=== PATIENT | female | born 1985 | race Caucasian/White ===

== ENCOUNTER 2016-10-29 17:11 | Emergency (ER) | payer SELFPAY ==
[2016-10-29 17:36] VITALS: BP 126/93
--- NOTE | 2016-10-29 17:38 | EDM.PDOC ---
ED HPI HEADACHE COMPLAINT - General Chief Complaint: Headache Stated Complaint: SEIZURES, MIGRAINE, LEFT EYE VISON LOSS Time Seen by Provider: 10/29/16 17:35 - History of Present Illness INITIAL COMMENTS - FREE TEXT/NARRATIVE: 31-year-old female presents emergency room with atypical migraine. Patient has a history of atypical migraines since 7 years of age. Her last was 3 months ago. This one is acting very much like her migraines in the past. It is associated with left-sided vision loss decreased hearing of left ear and at times she has absence seizures with these. Patient has severe nausea and vomiting. The patient is treated with Keppra. She has Phenergan at home however she's not been able to keep it down she last attempted this yesterday. Her headache has been going on for 9 or 10 days. They often go on this duration without aggressive treatment. Patient is visiting here from [place] and has not been seen in our department in the past. - Related Data Allergies/ADRs: Allergies Allergy/AdvReac Type Severity Reaction Status Date / Time ketorolac [From Toradol] Allergy Hives Verified 10/29/16 17:36 metoclopramide [From Reglan] Allergy Rash Verified 10/29/16 17:36 prochlorperazine Allergy Rash Verified 10/29/16 17:36 [From Compazine] Home Meds: Home Meds . [Unable to Verify Home Med List] 10/29/16 [History] ED ROS GENERAL - Review of Systems Review Of Systems: See Below Constitutional: Denies: fever, chills HEENT: Reports: Hearing loss, Vision change. Denies: Ear pain, Eye pain Respiratory: Reports: No Symptoms Cardiovascular: Reports: No symptoms GI/Abdominal: Reports: Diarrhea, Nausea, Vomiting. Denies: Abdominal pain : Reports: no symptoms Musculoskeletal: Reports: no symptoms Neurological: Reports: Headache, Seizure - Physical Exam Exam: See Below Exam Limited By: No limitations General Appearance: alert, moderate distress (She is in some distress from her headache and the nausea and vomiting this is a typical headache for her) Eye Exam: bilateral eye: EOMI, normal inspection, PERRL Ears: normal external exam, normal canal, normal TMs Nose: normal inspection Throat/Mouth: Normal inspection, Normal lips, Normal teeth, Normal gums, Normal oropharynx, Normal voice, No airway compromise Head Exam: atraumatic, normocephalic Neck: normal inspection, supple, full range of motion, other (She has some muscle tightness and left-sided with some mild to moderate discomfort). No: lymphadenopathy (L), lymphadenopathy (R), tender midline Respiratory/Chest: no respiratory distress, lungs clear, normal breath sounds Cardiovascular: regular rate, rhythm, no edema, no murmur GI/Abdominal: normal bowel sounds, soft, non tender Neuro Exam (Abbreviated): other (Cranial nerves intact other than the diminished hearing on the left gross strength is equal and appropriate in both upper extremities, deep tendon reflexes at the brachial radialis are equal and appropriate) Back Exam: normal inspection. No: CVA tenderness (L), CVA tenderness (R) Extremities: normal inspection, no pedal edema Course - Vital Signs Last Recorded V/S: Last Vital Signs Temp 36.3 C 10/29/16 17:31 Pulse 111 H 10/29/16 17:31 Resp 18 10/29/16 17:31 BP 126/93 H 10/29/16 17:31 Pulse Ox 99 10/29/16 17:31 - Orders/Labs/Meds Orders: Active Orders 24 hr Category Date Time Status EKG Documentation Completion [RC] STAT Care 10/29/16 19:21 Active Meds: Medications Discontinued Medications Generic Name Dose Route Start Last Admin Trade Name Que PRN Reason Stop Dose Admin Diphenhydramine HCl 50 mg 10/29/16 17:45 10/29/16 19:03 Benadryl IVPUSH 10/29/16 17:46 Not Given ONETIME ONE Diphenhydramine HCl 50 mg 10/29/16 18:36 10/29/16 18:42 Benadryl IM 10/29/16 18:37 50 mg ONETIME ONE Administration Haloperidol Lactate 5 mg 10/29/16 19:21 10/29/16 19:30 Haldol IM 10/29/16 19:22 5 mg ONETIME ONE Administration Lactated Ringer's 1,000 mls @ 999 mls/hr 10/29/16 17:45 10/29/16 18:25 Ringers, Lactated IV 10/29/16 18:45 999 mls/hr .BOLUS ONE Administration Promethazine HCl 25 mg/ Sodium 51 mls @ 100 mls/hr 10/29/16 17:45 Chloride IV 10/29/16 18:15 ONETIME ONE Promethazine HCl 25 mg 10/29/16 18:35 10/29/16 18:44 Phenergan IM 10/29/16 18:36 25 mg ONETIME ONE Administration - Re-Assessments/Exams Free Text/Narrative Re-Assessment/Exam: 10/29/16 18:02 She'll be treated with Phenergan 25 mg Benadryl 50 mg in a liter of LR initially 10/29/16 19:44 We had difficulty obtaining an IV line she developed significant chest discomfort when he started to this her pulse went up and she was acting very anxious. She did receive IM Phenergan and Benadryl. And this was followed by IM Haldol 5 mg. I went to discuss the situation with the patient as she refused an EKG. She is quite upset that she wanted strong pain medications. I informed her with no uncertain terms we'll give strong pain medications for migraines here. I encouraged her to let us continue the workup however she is insistent on going home she will sign out against medical advise. She was encouraged to stay and let us do our job, however, refused. Departure - Departure Time of Disposition: 19:46 Disposition: Against Medical Advice 07 Condition: undetermined Clinical Impression: Atypical migraine, Chest pain Forms: ED Department Discharge Additional Instructions: She left the department for acute give her precautions to watch out for with the medication she received. - My Orders Last 24 Hours: My Active Orders 10/29/16 19:21 EKG Documentation Completion [RC] STAT - Assessment/Plan Last 24 Hours: My Active Orders 10/29/16 19:21 EKG Documentation Completion [RC] STAT
[2016-10-29] MEDS ORDERED: Promethazine 25 MG in Sodium Chloride 0.9% 50 ML IV ONE (17:45)
[2016-10-29] MEDS ORDERED: Lactated Ringers 1,000 ML IV ONE (17:45)
[2016-10-29] MEDS ORDERED: diphenhydrAMINE 50 MG/ML SDV IVPUSH ONE (17:45)
[2016-10-29] MEDS ORDERED: Promethazine 25 MG/ML SDV IM ONE (18:35)
[2016-10-29] MEDS ORDERED: diphenhydrAMINE 50 MG/ML SDV IM ONE (18:36)
[2016-10-29] MEDS ORDERED: Haloperidol Lactate 5 MG/ML SDV IM ONE (19:21)
== END 2016-10-29 19:47 | disposition left against medical advice (07) ==
LOC: EDBD 17:11 → JD.ED 17:11
DX: G43.809 Other migraine, not intractable, without status migrainosus (principal); R07.9 Chest pain, unspecified; Z88.5 Allergy status to narcotic agent
CPT/HCPCS: 96372; 99284; J1200; J1630; J2550; J7120

== ENCOUNTER 2016-12-15 18:21 | Emergency (ER) | payer SELFPAY ==
--- NOTE | 2016-12-15 18:47 | EDM.PDOC ---
ED HPI GENERAL MEDICAL PROBLEM - General Chief Complaint: Headache Stated Complaint: MIGRAINE, VISION CHANGES Time Seen by Provider: 12/15/16 18:40 Source of Information: Reports: Patient History Limitations: Reports: No Limitations - History of Present Illness INITIAL COMMENTS - FREE TEXT/NARRATIVE: Patient is a 31-year-old female who presents to ED complaining of migraine headache located to the right side her head with mild blurred vision to the right eye per the past 17 days. States she has a history of seizures and is on Keppra. States over the past 2 days she's had a few generalized tonic-clonic seizures. She continues to take Keppra as prescribed. There has been no tongue trauma or incontinence urine or stool. She has history of similar headaches but notes the duration is quite long. She is seeing a neurologist in [place] with diagnosis of migraine. She has been taking Dilaudid 2 mg for her discomfort with little improvement. Denies any fevers/chills, chest pain, shortness breath , abdominal pain, dysuria, recent head trauma, n/t or any additional neurological deficits. She also denies stiff neck. Denies alcohol use, recreational drug use, or smoking. Past medical history: Seizures, anxiety, blood clots Current medications: Propanolol, Seroquel, Keppra, Dilaudid Surgical history: hysterectomy Onset: Other (17 days ago) Duration: Constant, Waxing/Waning Location: Reports: Head Quality: Reports: Ache, Same as Previous Episode (similar symptoms but longer duration), Throbbing Severity: Severe Improves with: Reports: None Treatments PROCESSOR HELPER: Reports: Other (see below) (see medication list.) Right Headache Pain Score (Numeric/FACES): 10 - Related Data Allergies Allergy/AdvReac Type Severity Reaction Status Date / Time ketorolac [From Toradol] Allergy Hives Verified 12/15/16 18:35 metoclopramide [From Reglan] Allergy Rash Verified 12/15/16 18:35 prochlorperazine Allergy Rash Verified 12/15/16 18:35 [From Compazine] Home Meds: Home Meds Propranolol [Inderal] 250 mg PO DAILY 12/15/16 [History] QUEtiapine [SEROquel] 50 mg PO BEDTIME 12/15/16 [History] Past Medical History Cardiovascular History: Reports: Blood Clots/VTE/DVT Neurological History: Reports: Seizure Psychiatric History: Reports: Anxiety - Past Surgical History GI Surgical History: Reports: Other (See Below) Social & Family History - Tobacco Use Smoking Status *Q: Never Smoker - Caffeine Use Caffeine Use: Reports: None - Recreational Drug Use Recreational Drug Use: No ED ROS GENERAL - Review of Systems Review Of Systems: See Below Constitutional: Reports: Decreased Appetite. Denies: Fever, Chills, Malaise, Weakness, Fatigue HEENT: Reports: Vision Change (right I blurriness) Respiratory: Denies: Shortness of Breath, Cough, Sputum Cardiovascular: Denies: Chest Pain, Dyspnea on Exertion, Palpitations GI/Abdominal: Reports: Nausea, Vomiting. Denies: Abdominal Pain : Denies: Dysuria Musculoskeletal: Reports: No Symptoms Neurological: Reports: Headache, Seizure (history of seizures. States with recent onset of headache has had multiple grand mal seizures.). Denies: Confusion, Dizziness, Numbness, Pre-Existing Deficit, Syncope, Tingling, Difficulty Walking, Weakness - Physical Exam Exam: See Below Exam Limited By: No Limitations General Appearance: Alert, WD/WN, Moderate Distress, Other (No facial droop or sensory deficits noted to face. ) Eye Exam: Bilateral Eye: EOMI, Nystagmus (no nystagmus), PERRL Ears: Normal External Exam Nose: Normal Inspection Throat/Mouth: Normal Inspection, Normal Oropharynx, Normal Voice, No Airway Compromise Head Exam: Atraumatic, Normocephalic Neck: Normal Inspection, Supple, Non-Tender, Full Range of Motion. No: Lymphadenopathy (L), Lymphadenopathy (R), Tender Lateral, Tender Midline Respiratory/Chest: No Respiratory Distress, Lungs Clear, Normal Breath Sounds, No Accessory Muscle Use, Chest Non-Tender Cardiovascular: Normal Peripheral Pulses, Regular Rate, Rhythm, No Edema, No Murmur GI/Abdominal: Normal Bowel Sounds, Soft, Non-Tender, No Organomegaly, No Distention Neuro Exam (Abbreviated): Alert, Oriented, CN II-XII Intact, Normal Cognition, No Motor/Sensory Deficits, Other (cerebellar function intact. Upper and lower extremity strength 5 over 5 withno discrepancy) Back Exam: Normal Inspection, Full Range of Motion. No: CVA Tenderness (L), CVA Tenderness (R), Paraspinal Tenderness, Vertebral Tenderness Extremities: Normal Inspection, Non-Tender, No Pedal Edema, Normal Capillary Refill Psychiatric: Normal Affect, Normal Mood Skin Exam: Warm, Dry, Intact, Normal Color Course - Vital Signs Last Recorded V/S: Last Vital Signs Temp 97.8 F 12/15/16 18:28 Pulse 78 12/15/16 21:21 Resp 18 12/15/16 21:21 BP 112/80 12/15/16 21:21 Pulse Ox 97 12/15/16 21:21 - Orders/Labs/Meds Orders: Active Orders 24 hr Category Date Time Status Head wo Cont [CT] Stat Exams 12/15/16 18:58 Taken KEPPRA [REF] Stat Lab 12/15/16 19:49 Received Labs: Laboratory Tests 12/15/16 12/15/16 Range/Units 19:49 19:49 WBC 7.82 (3.98-10.04) K/mm3 RBC 4.35 (3.98-5.22) M/mm3 Hgb 13.0 (11.2-15.7) gm/L Hct 39.4 (34.1-44.9) % MCV 90.6 (79.4-94.8) fl MCH 29.9 (25.6-32.2) pg MCHC 33.0 (32.2-35.5) g/dl RDW Std Deviation 47.6 H (36.4-46.3) fL Plt Count 391 H (182-369) K/mm3 MPV 9.6 (9.4-12.3) fl Neut % (Auto) 44.0 (34.0-71.1) % Lymph % (Auto) 45.1 (19.3-51.7) % [place] % (Auto) 9.6 (4.7-12.5) % Eos % (Auto) 0.8 (0.7-5.8) Baso % (Auto) 0.5 (0.1-1.2) % Neut # (Auto) 3.44 (1.56-6.13) K/mm3 Lymph # (Auto) 3.53 (1.18-3.74) K/mm3 [place] # (Auto) 0.75 H (0.24-0.36) K/mm3 Eos # (Auto) 0.06 (0.04-0.36) K/mm3 Baso # (Auto) 0.04 (0.01-0.08) K/mm3 Sodium 141 (136-145) mEq/L Potassium 3.6 (3.5-5.1) mEq/L Chloride 109 H (98-107) mEq/L Carbon Dioxide 24 (21-32) mEq/L Anion Gap 11.6 (5-15) BUN 18 (7-18) mg/dL Creatinine 0.9 (0.55-1.02) mg/dL Est Cr Clr Drug Dosing 84.01 mL/min Estimated GFR (MDRD) > 60 (>60) mL/min BUN/Creatinine Ratio 20.0 H (14-18) Glucose 84 (74-106) mg/dL Calcium 8.9 (8.5-10.1) mg/dL Total Bilirubin 0.2 (0.2-1.0) mg/dL AST 11 L (15-37) U/L ALT 24 (14-59) U/L Alkaline Phosphatase 64 (46-116) U/L C-Reactive Protein 0.5 (<1.0) mg/dL Total Protein 7.6 (6.4-8.2) g/dl Albumin 3.8 (3.4-5.0) g/dl Globulin 3.8 gm/dL Albumin/Globulin Ratio 1.0 (1-2) Meds: Medications Discontinued Medications Generic Name Dose Route Start Last Admin Trade Name Freq PRN Reason Stop Dose Admin Diphenhydramine HCl 50 mg 12/15/16 18:58 12/15/16 20:16 Benadryl IVPUSH 12/15/16 18:59 50 mg ONETIME ONE Administration Haloperidol Lactate 5 mg 12/15/16 18:58 12/15/16 20:28 Haldol IVPUSH 12/15/16 18:59 5 mg ONETIME ONE Administration Sodium Chloride 1,000 mls @ 999 mls/hr 12/15/16 19:00 12/15/16 20:02 Normal Saline IV 12/15/16 20:00 999 mls/hr ONETIME ONE Administration Lorazepam 1 mg 12/15/16 18:58 12/15/16 20:19 Ativan IVPUSH 12/15/16 18:59 1 mg ONETIME ONE Administration Promethazine HCl 12.5 mg 12/15/16 18:58 12/15/16 20:22 Phenergan IM 12/15/16 18:59 12.5 mg ONETIME ONE Administration - Re-Assessments/Exams Free Text/Narrative Re-Assessment/Exam: 12/15/16 19:02 Ordered a peripheral IV with normal saline 1000 mL per hour, Phenergan 12.5 mg IM, Haldol 5 mg IVP, Ativan 1 mg IVP, Benadryl 50 mg IVP. Initial labs and studies include CBC, chem 14, CRP, head CT without, UA, and urine drug tox. In addition we'll also order a Keppra level which will be send out. CT the head without IV contrast impression: Normal head/brain CT. 12/15/16 20:54 Reassessment, patient sleeping soundly. With awakening still has headache to the right side. Does not appear to be in acute distress. She refuses giving a urine sample. She has a ride. Will discharge home. Departure - Departure Time of Disposition: 20:56 Disposition: Home, Self-Care 01 Condition: good Clinical Impression: Migraine Qualifiers: Migraine type: unspecified Status migrainosus presence: without status migrainosus Intractability: not intractable Qualified Code(s): G43.909 - Migraine, unspecified, not intractable, without status migrainosus - Discharge Information Instructions: Migraine Headache Referrals: PCP,Not In Area [Primary Care Provider] - Marquise Donaldson [Physician] - Forms: ED Department Discharge Additional Instructions: as discussed, see Dr. Donaldson PCP at [facility] this coming week. Call and make an appointment. Continue taking all home medications as prescribed. Keppra level has been obtained this is a send out and results can be discussed with you by PCP. Modifications to medication dosage may be made at that time.make an appointment to be seen by her neurologist. No driving this evening since receiving any sedative medication. Suggest no driving with a history of recent seizures. Return to ED if he develops fever or, stiff neck, or any neurological deficits. - My Orders Last 24 Hours: My Active Orders 12/15/16 18:58 Head wo Cont [CT] Stat 12/15/16 19:49 KEPPRA [REF] Stat - Assessment/Plan Last 24 Hours: My Active Orders 12/15/16 18:58 Head wo Cont [CT] Stat 12/15/16 19:49 KEPPRA [REF] Stat
[2016-12-15] MEDS ORDERED: Promethazine 25 MG/ML SDV IM ONE (18:58)
[2016-12-15] MEDS ORDERED: diphenhydrAMINE 50 MG/ML SDV IVPUSH ONE (18:58)
[2016-12-15] MEDS ORDERED: LORazepam 2 MG/ML MDV IVPUSH ONE (18:58)
[2016-12-15] MEDS ORDERED: Haloperidol Lactate 5 MG/ML SDV IVPUSH ONE (18:58)
[2016-12-15] MEDS ORDERED: Sodium Chloride 0.9% 1,000 ML IV ONE (19:00)
[2016-12-15 21:23] VITALS: BP 112/80
--- NOTE | 2016-12-18 11:14 | CT ---
Head CT Technique: Multiple axial sections through the brain were obtained. Intravenous contrast was not utilized. Comparison: No previous intracranial imaging. Findings: Ventricles along with basal cisterns and sulci over the convexities appear within normal limits for the patient's age. No abnormal parenchymal densities are seen. No evidence of intracranial hemorrhage. No midline shift or mass effect is seen. Bone window settings were reviewed which show the visualized sinuses to appear clear. No acute calvarial abnormality is seen. Impression: 1. No abnormality is identified on noncontrast head CT exam. Diagnostic code #1 Agree with preliminary report issued by [facility] ([facility] preliminary report dictated on 12/15/16, 8:44 PM Central Time)
== END 2016-12-15 21:25 | disposition home or self-care (01) ==
LOC: JD.ED 18:21
DX: G43.909 Migraine, unspecified, not intractable, without status migrainosus (principal); F41.9 Anxiety disorder, unspecified; Z86.718 Personal history of other venous thrombosis and embolism; Z88.6 Allergy status to analgesic agent; Z88.8 Allergy status to other drugs, medicaments and biological substances; Z79.899 Other long term (current) drug therapy
CPT/HCPCS: 36415; 70450; 80053; 80177; 85025; 86140; 96361; 96372; 96374; 96375; 99284; J1200; J1630; J2060; J2550; J7040

== ENCOUNTER 2017-02-03 14:19 | Emergency (ER) | payer SELFPAY ==
[2017-02-03] MEDS ORDERED: Proparacaine 0.5% Ophth Soln 15 ML Bottle ONE (15:43)
[2017-02-03] MEDS ORDERED: Benoxinate/Fluorescein 0.4-0.25% Ophth Soln 5 ML Bottle ONE (15:43)
[2017-02-03] MEDS ORDERED: diphenhydrAMINE 50 MG/ML SDV IM ONE (16:00)
[2017-02-03] MEDS ORDERED: Haloperidol Lactate 5 MG/ML SDV IM ONE (16:00)
[2017-02-03] MEDS ORDERED: Ondansetron 4 MG Tab.DIS PO ONE (16:00)
--- NOTE | 2017-02-03 16:07 | EDM.PDOC ---
ED HPI GENERAL MEDICAL PROBLEM - General Chief Complaint: Headache Stated Complaint: HEAD PAIN/RIGHT EYE PAIN Time Seen by Provider: 02/03/17 15:07 Source of Information: Reports: Patient History Limitations: Reports: No Limitations - History of Present Illness INITIAL COMMENTS - FREE TEXT/NARRATIVE: Patient has a history of ocular shingles and migraine. States the migraine has been persistent for the past 8 days. States she's been under more stress recently with moving. States this morning the discomfort has progressively gotten worse and she vomited 1. She has some intermittent blurriness of the right eye. She does note right eye has become injected. No vision loss present. Does not describe the headache as the worse headache of her life. States symptoms she's currently experiencing are somewhat similar to previous shingles breakout. States she taking Maxalt, midorine, Lortab, Phenergan 2 hours ago with no improvements. She has photophobia and hyperacusis. States she gets shingles twice a year and believes it may be brewing. Denies any fever/chills, chest pain, shortness of breath, numbness/ tingling, weakness, stiff neck, or any additional neurological deficits. Right Headache Pain Score (Numeric/FACES): 9 - Related Data Allergies Allergy/AdvReac Type Severity Reaction Status Date / Time ketorolac [From Toradol] Allergy Hives Verified 02/03/17 14:38 metoclopramide [From Reglan] Allergy Rash Verified 02/03/17 14:38 prochlorperazine Allergy Rash Verified 02/03/17 14:38 [From Compazine] Home Meds: Home Meds Propranolol [Inderal] 250 mg PO DAILY 12/15/16 [History] QUEtiapine [SEROquel] 50 mg PO BEDTIME 12/15/16 [History] Acetaminophen/HYDROcodone [Lortab 500-5 MG] 1 tab PO Q6H PRN 02/03/17 [History] Acyclovir 1 tab PO ASDIRECTED PRN 02/03/17 [History] Midodrine 1 tab PO Q6H PRN 02/03/17 [History] Rizatriptan Benzoate [Maxalt] 5 mg PO Q6H PRN 02/03/17 [History] levETIRAcetam [Keppra] 500 mg PO BID 02/03/17 [History] Past Medical History HEENT History: Reports: Impaired Vision Cardiovascular History: Reports: Blood Clots/VTE/DVT Neurological History: Reports: Seizure Psychiatric History: Reports: Anxiety Immunologic History: Reports: Other (See Below) Other Immunologic History: history of frequent shingles - Infectious Disease History Infectious Disease History: Reports: Shingles - Past Surgical History HEENT Surgical History: Reports: Adenoidectomy, Tonsillectomy Social & Family History - Family History Family Medical History: Noncontributory - Tobacco Use Smoking Status *Q: Never Smoker Second Hand Smoke Exposure: No - Caffeine Use Caffeine Use: Reports: None - Recreational Drug Use Recreational Drug Use: No ED ROS GENERAL - Review of Systems Review Of Systems: ROS reveals no pertinent complaints other than HPI. - Physical Exam Exam: See Below Exam Limited By: No Limitations General Appearance: Alert, WD/WN, Moderate Distress Eye Exam: Right Eye: Conjunctival Injection, Vision Changes (intermittent blurriness, no double vision), Bilateral Eye: EOMI, PERRL Ears: Normal External Exam, Hearing Grossly Normal Nose: Normal Inspection Throat/Mouth: Normal Voice, No Airway Compromise Head Exam: Atraumatic, Normocephalic Neck: Normal Inspection, Supple, Non-Tender, Full Range of Motion. No: Lymphadenopathy (L), Lymphadenopathy (R) Respiratory/Chest: No Respiratory Distress, Lungs Clear, Normal Breath Sounds, No Accessory Muscle Use, Chest Non-Tender Cardiovascular: Normal Peripheral Pulses, Regular Rate, Rhythm Neuro Exam (Abbreviated): Alert, Oriented, CN II-XII Intact, Normal Cognition, No Motor/Sensory Deficits, Other (Neuro exam: No facial droop, slurred speech, uvula deviation, tongue deviation, weakness discrepancy to upper or lower extremity's. Cerebellar function is intact.) Back Exam: Normal Inspection Extremities: Normal Inspection, Non-Tender, No Pedal Edema Psychiatric: Anxious Skin Exam: Warm, Dry, Intact, Normal Color. No: Zoster-Like Rash Course - Vital Signs Last Recorded V/S: Last Vital Signs Temp 98.8 F 02/03/17 14:34 Pulse 119 H 02/03/17 14:34 Resp 16 02/03/17 14:34 BP 121/83 02/03/17 14:34 Pulse Ox 99 02/03/17 14:34 - Orders/Labs/Meds Meds: Medications Discontinued Medications Generic Name Dose Route Start Last Admin Trade Name Que PRN Reason Stop Dose Admin Diphenhydramine HCl 50 mg 02/03/17 16:00 02/03/17 16:10 Benadryl IM 02/03/17 16:01 50 mg ONETIME ONE Administration Fluorescein Sodium/Benoxinate HCl Confirm 02/03/17 15:43 02/03/17 16:53 Fluress Ophth Soln Administered 02/03/17 15:44 Not Given Dose 5 ml .ROUTE .STK-MED ONE Fluorescein Sodium/Benoxinate HCl 1 ml 02/03/17 16:51 02/03/17 15:45 Fluress Ophth Soln EYERT 02/03/17 16:52 1 drop ONETIME STA Administration Haloperidol Lactate 7.5 mg 02/03/17 16:00 02/03/17 16:11 Haldol IM 02/03/17 16:01 7.5 mg ONETIME ONE Administration Lorazepam 1 mg 02/03/17 16:51 02/03/17 16:55 Ativan IM 02/03/17 16:52 1 mg ONETIME STA Administration Ondansetron HCl 4 mg 02/03/17 16:00 02/03/17 16:09 Zofran Odt PO 02/03/17 16:01 4 mg ONETIME ONE Administration Proparacaine HCl Confirm 02/03/17 15:43 02/03/17 16:53 Proparacaine 0.5% Ophth Soln Administered 02/03/17 15:44 Not Given Dose 15 ml .ROUTE .STK-MED ONE Proparacaine HCl 1 ml 02/03/17 16:52 02/03/17 15:45 Proparacaine 0.5% Ophth Soln EYERT 02/03/17 16:53 1 drop ONETIME STA Administration - Re-Assessments/Exams Free Text/Narrative Re-Assessment/Exam: Examination did reveal injected right eye. No visual disturbances noted. Proparacaine relieved the ocular pain. Fluress was administered. Under slit lamp examination no dendritic lesions present. No corneal abrasions. Also utilize the was lamp with no abnormal findings noted as well. Ordered Haldol 7.5 mg IM, Benadryl 50 mg IM, and Zofran 4 mg IM. No IV fluids are required at this time. [place] was moist. She has been pushing the fluids. Suspect she may have onset of ocular shingles. At this point on examination nothing was found. She'll require close follow-up with support specialist/service agent to ensure this does not develop. She'll continue taking all her medications as prescribed including her acyclovir. 02/03/17 16:48 reassessment, patient is resting more comfortably in bed at this point. Pain to the right eye has improved. She states headache has not. Patient has been taking [place] for headaches for quite some time. At this point will not proceed down that slippery slope. Narcotics have a hypodensity a developing a rebound headache 4 hours after administration thus patient would only have worsening symptoms. Thus to further sedate the patient will order Ativan 1 mg IM. 02/03/17 17:20 reassessment, headache is improving. Patient will be discharged home with instructions as documented. Departure - Departure Time of Disposition: 17:21 Disposition: Home, Self-Care 01 Condition: Good Clinical Impression: Migraine - Discharge Information Referrals: PCP,None [Primary Care Provider] - Forms: ED Department Discharge Additional Instructions: Take all your home medications as prescribed. Unclear if this is early onset of ocular herpes zoster. Thus will have you continue taking acyclovir. See a support specialist/service agent in 2-3 days for reevaluation. She just going home and finding a dark room to sleep in with no distractions. Return to the ED as needed for any new or worsening symptoms. No driving today since receiving sedative medications while in the ED.
[2017-02-03] MEDS ORDERED: Benoxinate/Fluorescein 0.4-0.25% Ophth Soln 5 ML Bottle EYERT STA (16:51)
[2017-02-03] MEDS ORDERED: LORazepam 2 MG/ML MDV IM STA (16:51)
[2017-02-03] MEDS ORDERED: Proparacaine 0.5% Ophth Soln 15 ML Bottle EYERT STA (16:52)
[2017-02-03 17:45] VITALS: BP 98/72
== END 2017-02-03 17:30 | disposition home or self-care (01) ==
LOC: JD.ED 14:19
DX: G43.909 Migraine, unspecified, not intractable, without status migrainosus (principal); Z88.6 Allergy status to analgesic agent; Z88.8 Allergy status to other drugs, medicaments and biological substances; Z79.899 Other long term (current) drug therapy; Z98.890 Other specified postprocedural states
CPT/HCPCS: 96372; 99283; A9270; J1200; J1630; J2060; 99284